=== PATIENT | male | born 1970 | race Caucasian/White ===

== ENCOUNTER 2021-01-10 09:35 | Emergency (ER) | payer SELFPAY ==
[2021-01-10 10:49] LABS: BILIRUBIN NEGATIVE (NEGATIVE); BLOOD TRACE-INTACT Ery/uL (NEGATIVE); CLARITY CLEAR (CLEAR); COLOR YELLOW (YELLOW); GLUCOSE (U) NORMAL (NORMAL); LEUKOCYTES NEGATIVE Leu/uL (NEGATIVE); NITRITE NEGATIVE (NEGATIVE); PROTEIN NEGATIVE (NEGATIVE); SPECIFIC GRAVITY 1.025 (1.001-1.030); UROBILINOGEN 0.2 mg/dL (0.2-1.0)
[2021-01-10 10:57] LABS: URINARY RBC RARE
[2021-01-10 12:10] LABS: BASOPHIL 0.4 % (0-2); EOSINOPHIL 0.3 % (0-5); HCT 46.3 % (42.0-52.0); HGB 15.5 g/dl (13.2-18.0); LYMPHOCYTE 8.6 % (15-48); MCH 29.8 pg (25.0-31.0); MCHC 33.5 g/dL (32.0-36.0); MCV 88.9 fL (78.0-100.0); MONOCYTE 6.9 % (0-12); MPV 10.6 fL (6.0-9.5); NEUTROPHIL 83.3 % (41-80); NRBC 0; PLT 227 K/uL (150-400); RBC 5.21 M/uL (4.70-6.00); RDW 13.6 % (11.5-14.0); WBC 13.6 K/uL (4.0-10.5)
[2021-01-10 12:22] LABS: ALBUMIN 3.8 g/dL (3.4-5.0); BILIRUBIN - TOTAL 0.6 mg/dL (0.2-1.0); BUN/CREAT RATIO (CALC) 13.2 RATIO; CREATININE 1.36 mg/dL (0.67-1.17); POTASSIUM 4.4 mmol/L (3.5-5.1); TOTAL PROTEIN 7.8 g/dL (6.4-8.2)
[2021-01-10] MEDS ORDERED: NORCO 5-325 TA1 EACH PO (14:11)
[2021-01-10] MEDS ORDERED: ONDANSETRON ODT4 MG PO (14:11)
[2021-01-10] MEDS ORDERED: NAPROXEN500 MG PO (14:11)
== END 2021-01-10 10:46 | disposition home or self-care (01) ==
LOC: FER 09:35 → EDBD 09:35 → FER 10:46
PROVIDERS: Emergency Medicine
DX: N13.2 Hydronephrosis with renal and ureteral calculous obstruction (principal)
CPT/HCPCS: 36415; 71275; 80053; 81001; 83690; 84145; 85025; 93005; J1170; J2405; J7030; Q9967